=== PATIENT | female | born 1960 | race Asian ===

== ENCOUNTER → 2020-03-17 | Outpatient (CLI) | payer OTHER ==
[~2020-03-17] MED LIST: AMOXICILLIN 8751 TAB PO; ZESTRIL 5MG5 MG PO
[2020-03-17 11:46] LABS: BASO # 0.1 (0.0-0.2); BASO % 0.5 % (0.0-2.0); EOS # 0.3 (0.0-0.7); GRAN # 7.6 (1.4-6.5); GRAN % 76.9 % (42.2-75.2); HEMATOCRIT 39.6 % (37.0-47.0); HEMOGLOBIN 13.2 g/dl (12.5-16.0); LYMPH # 1.4 (1.2-3.4); LYMPH % 13.7 % (20.0-51.0); MEAN CELL VOLUME 88 fl (80.0-100.0); MEAN CORPUSCULAR HEMOGLOBIN 29 pg (27.0-31.0); MEAN CORPUSCULAR HGB CONC 33 g/dl (33.0-37.0); MEAN PLATELET VOLUME 9.7 fl (7.4-10.4); MONO # 0.6 (0.1-0.6); MONO % 5.7 % (1.7-9.3); PLATELET COUNT 336 K/mm3 (130-400); RED BLOOD COUNT 4.52 M/mm3 (4.10-5.30); REDCELL DISTRIBUTION WIDTH-CV 12.4 % (11.5-14.5)
[2020-03-17 11:56] LABS: ALBUMIN 4.4 gm/dL (3.5-5.0); BILIRUBIN,TOTAL 1.1 mg/dL (0.0-1.0); CALCIUM 9.7 mg/dL (8.4-10.2); CREATININE, serum 0.65 (0.52-1.25); POTASSIUM 4.4 mmol/L (3.4-5.0); TOTAL PROTEIN 8.2 gm/dL (6.4-8.2)
== END ==
LOC: COL.LAB 11:24
PROVIDERS: Physician Assistant
DX: T63.301A Toxic effect of unspecified spider venom, accidental (unintentional), initial encounter (principal)

== ENCOUNTER 2021-03-09 11:15 | Outpatient (RCR) | payer OTHER | END 2021-03-23 13:54 | disposition home or self-care (01) | LOC: WSPT 11:15 | DX: M62.830 Muscle spasm of back (principal) ==

== ENCOUNTER 2021-08-16 09:15 | Outpatient (RCR) | payer OTHER | END 2021-08-19 | disposition home or self-care (01) | LOC: WSPT | DX: M54.31 Sciatica, right side (principal); M25.551 Pain in right hip; G89.29 Other chronic pain | CPT/HCPCS: G0283-GP ==

== ENCOUNTER 2021-09-01 15:45 | Outpatient (RCR) | payer OTHER | END 2021-09-09 10:47 | disposition home or self-care (01) | LOC: WSPT 15:45 | DX: M54.31 Sciatica, right side (principal); M25.551 Pain in right hip | CPT/HCPCS: G0283-GP ==

== ENCOUNTER → 2021-10-12 | Outpatient (CLI) | payer OTHER | LOC: MHCPAIN 09:42 | DX: M47.896 Other spondylosis, lumbar region (principal); M53.3 Sacrococcygeal disorders, not elsewhere classified; G89.29 Other chronic pain | CPT/HCPCS: G0463 ==